=== PATIENT | female | born 1950 | race Caucasian/White ===

== ENCOUNTER 2017-05-13 10:39 | Outpatient (CLI) | payer MEDICARE | END 2017-05-13 10:40 | disposition home or self-care (01) | LOC: BICMAMMO 10:39 | PROVIDERS: ATTEND Family Medicine | DX: Z12.31 Encounter for screening mammogram for malignant neoplasm of breast (principal); R92.1 Mammographic calcification found on diagnostic imaging of breast | CPT/HCPCS: 77063; 77067 ==

== ENCOUNTER 2017-05-15 11:38 | Day surgery (SDC) | payer MEDICARE ==
--- NOTE | 2017-05-15 14:05 | OP ---
DATE OF PROCEDURE: 05/15/2017 TITLE OF THE PROCEDURE: Colonoscopy with snare polypectomy. PREOPERATIVE DIAGNOSES: 1. History of colon polyps. 2. Family history of colon cancer in her grandmother at age 90. 3. History of colon polyps in her father. POSTOPERATIVE DIAGNOSES: 1. Exam to cecum; fair bowel preparation. 2. Diffusely tortuous colon (moderate to severe degree). 3. Mild sigmoid diverticulosis. 4. Diminutive polyp in the proximal ascending colon (3 mm), removed by cold snare technique. 5. Diminutive polyp in the sigmoid colon (3-4 mm), removed by cold snare technique. 6. Medium nonbleeding internal hemorrhoids. 7. Small external hemorrhoids. 8. Otherwise normal colonoscopy. PROCEDURE IN DETAIL: Written informed consent was obtained. The patient was brought to the endoscop y suite. Total intravenous anesthesia was provided by Srini Pedroza CRNA. The patient was placed in th e left lateral decubitus position. A digital rectal exam was performed, which revealed small externa l hemorrhoids. A Pentax video colonoscope was inserted through the anal canal and advanced under dir ect visualization to the cecum. Position in the cecum was verified by transillumination and identifi cation of the appendiceal orifice and the ileocecal valve. The quality of the bowel preparation was adequate. Liquid in fecal matter pooled in multiple areas of the colon. Using copious irrigation an d suctioning, most of this fecal debris was removed. In the proximal ascending colon, a 3 mm sessile polyp was identified and removed by cold snare technique. Another similar polyp about 3-4 mm in katlyn meter was removed from the sigmoid colon using the same cold snare technique. Several diverticular o rifices were noted in the sigmoid colon, small and medium in size. The colon was diffusely tortuous of a moderate to severe degree. In the rectum, a retroflexed view demonstrated medium size nonbleedi ng internal hemorrhoids. The colon was decompressed as the colonoscope was removed from the patient. She was transferred to the day stay surgery area for post-procedure monitoring. There were no imme diate complications. RECOMMENDATIONS: 1. Await pathology results. 2. Ask the patient to call me in 1 week for pathology results. 3. Resume previous diet and medications. 4. Repeat colonoscopy in five years. 5. Follow up with Gastroenterology as needed.
== END 2017-05-15 15:00 | disposition home or self-care (01) ==
LOC: SDC 11:38
PROVIDERS: ATTEND Internal Medicine Gastroenterology
PROC: 0DBK8ZX Excision of Ascending Colon, Via Natural or Artificial Opening Endoscopic, Diagnostic (ICD-10-PCS; principal; 2017-05-15)
PROC: 0DBN8ZX Excision of Sigmoid Colon, Via Natural or Artificial Opening Endoscopic, Diagnostic (ICD-10-PCS; 2017-05-15)
DX: Z12.11 Encounter for screening for malignant neoplasm of colon (principal); K63.5 Polyp of colon; K64.8 Other hemorrhoids; K64.4 Residual hemorrhoidal skin tags; K57.30 Diverticulosis of large intestine without perforation or abscess without bleeding; F31.9 Bipolar disorder, unspecified; F90.0 Attention-deficit hyperactivity disorder, predominantly inattentive type; G89.29 Other chronic pain; M81.0 Age-related osteoporosis without current pathological fracture; J45.909 Unspecified asthma, uncomplicated; M41.9 Scoliosis, unspecified; J44.9 Chronic obstructive pulmonary disease, unspecified; F17.210 Nicotine dependence, cigarettes, uncomplicated; F41.9 Anxiety disorder, unspecified; F12.11 Cannabis abuse, in remission; Z99.3 Dependence on wheelchair; Z79.2 Long term (current) use of antibiotics; Z79.1 Long term (current) use of non-steroidal anti-inflammatories (NSAID); Z79.891 Long term (current) use of opiate analgesic; Z79.899 Other long term (current) drug therapy; Z88.5 Allergy status to narcotic agent; Z98.1 Arthrodesis status; Z98.84 Bariatric surgery status; Z96.652 Presence of left artificial knee joint; Z96.611 Presence of right artificial shoulder joint; Z96.89 Presence of other specified functional implants; Z90.89 Acquired absence of other organs; Z90.710 Acquired absence of both cervix and uterus; Z98.891 History of uterine scar from previous surgery; Z98.890 Other specified postprocedural states; Z87.19 Personal history of other diseases of the digestive system; Z83.79 Family history of other diseases of the digestive system
CPT/HCPCS: 88300; 88305

== ENCOUNTER 2017-07-19 21:55 | Emergency (ER) | payer MEDICARE | END 2017-07-19 23:09 | disposition left against medical advice (07) | LOC: ERS 21:55 | DX: Z53.21 Procedure and treatment not carried out due to patient leaving prior to being seen by health care provider (principal) | CPT/HCPCS: 94640; J7620 ==

== ENCOUNTER 2017-07-20 15:10 | Outpatient (CLI) | payer MEDICARE ==
--- NOTE | 2017-07-20 16:04 | RAD ---
TWO VIEW CHEST: INDICATION: Bronchitis. COMPARISON: Comparison is made to a portable chest of 12/03/16 and chest films dating back to 10/30/14. Calcified granuloma in the right lung base is again noted. There are numerous small calcified lymph nodes in the right infrahilar region which are stable. There is streaky density in the right lung ba se which could represent streaky atelectasis or infiltrate. Similar density has been seen in the rig ht lung base previously which may indicate chronic parenchymal change. The left lung appears clear. Blunting of the left CP angle is a stable finding. No evidence of vasc ular congestion. Heart size within normal range. There is scoliotic curvature of the thoracic spine to the right. IMPRESSION: 1. Streaky atelectasis and/or infiltrative changes in the right lung base. Similar findings were no michel on prior exam, and this may be chronic; however, an acute element of infiltrate cannot be exclude d. 2. Calcified granuloma in the right lower lung again noted. POS: [facility]
== END 2017-07-20 15:11 | disposition home or self-care (01) ==
LOC: SCSRAD 15:10
PROVIDERS: ATTEND Family Medicine
DX: J40 Bronchitis, not specified as acute or chronic (principal); J98.11 Atelectasis; R91.8 Other nonspecific abnormal finding of lung field
CPT/HCPCS: 71046

== ENCOUNTER 2017-11-28 11:15 | Emergency (ER) | payer MEDICARE ==
[2017-11-28 11:56] LABS: Hemoglobin 13.8 g/dL (12.0-16.0); Mean Corpuscular Hemoglobin 31.3 pg (27.0-31.0); Mean Corpuscular Volume 94.8 fL (78.0-98.0); Mean Platelet Volume 7.2 fL (7.4-10.4); Platelet Count 245 thou/uL (130-400); White Blood Cell (WBC) Count 15.3 thou/uL (4.8-10.8)
[2017-11-28 12:05] LABS: ALT (SGPT) Less than 7 U/L (8-55); AST (SGOT) 15 U/L (5-34); Albumin 4.5 g/dL (3.4-4.8); Alkaline Phosphatase 91 U/L (40-150); BUN (Urea Nitrogen) 37 mg/dL (9.8-20.1); Bilirubin, Total 0.6 mg/dL (0.2-1.2); CK (CPK) 39 U/L (29-168); Calc. Creatinine Clearance 0 mL/min (70-130); Estimated GFR-MDRD 46; Glucose 106 mg/dL (80-115); Lipase 20 U/L (8-78); Protein, Total 7.5 g/dL (6.0-8.3)
[2017-11-28 12:08] LABS: CKMB 1.3 ng/mL (0-6.6); Troponin I Less than 0.010 ng/mL (< 0.028)
[2017-11-28 12:14] LABS: Anion Gap 17 mmol/L (10-20); Carbon Dioxide 35 mmol/L (23-31); Chloride 93 mmol/L (98-107); Potassium 4.1 mmol/L (3.5-5.1); Sodium 141 mmol/L (136-145)
--- NOTE | 2017-11-28 12:30 | RAD ---
PORTABLE CHEST 1 VIEW: DATE: 11/28/17. TIME: 11:02 a.m. HISTORY: Chest pain. FINDINGS: Comparison is made with the exam of 12/03/16. The heart size is borderline. The aorta is tortuous. There is evidence of old granulomatous disease . No lobar consolidation, pneumothoraces, juan pulmonary edema, or large effusions are seen. There is continued blunting of the left costophrenic angle which may be due to a small effusion or scarrin g. Postop changes in the lumbar spine and the right shoulder are again noted. POS: [facility]
[2017-11-28 12:33] LABS: Lymphocytes 10 % (21-51); MDiff Complete? YES; Monocytes 6 % (0-10); Neutrophil 82 % (42-75); PLT Morphology Comment Appears Adequate; RBC Morphology Normal; Reactive Lymphocytes 2 % (0-10)
--- NOTE | 2017-11-28 12:59 | CT ---
CT PULMONARY ANGIOGRAM WITH IV CONTRAST AND 3D POSTPROCESSING: HISTORY: Chest pain. FINDINGS: The pulmonary arterial vasculature is well opacified without filling defects to suggest pulmonary emb olism. There is an intimal flap in the ascending thoracic aorta consistent with aortic dissection. There is periaortic soft tissue density along the thoracic aorta (including ascending, descending, an d arch). A small pericardial effusion is seen. No pleural effusions are identified. There are calc ified lymph nodes in the right hilum. There is scarring in the lung bases. No pneumothoraces or lobar consolidation are identified. There are degenerative changes in the spine. Interspinal leads are present. There is scoliosis of the sp ine. There are postop changes in the lumbar spine and the right shoulder. The dissection does not e xtend into the great vessels. The upper abdominal tomograms demonstrate changes of cholecystectomy and calcified granulomas in the spleen. IMPRESSION: DeBakey type II/Dangelo type A aortic dissection involving the ascending aorta. Discussed over the telephone with ER physician, Dr. Miguelito Mccormick, at 12:46 p.m. CODE CR POS: [facility]
[2017-11-28] MEDS ORDERED: ISOVUE-370 76%-LOCM 1 ML ONE (14:55)
== END 2017-11-28 14:45 | disposition short-term general hospital (02) ==
LOC: ERS 11:15
DX: I71.2 Thoracic aortic aneurysm, without rupture (principal); J45.909 Unspecified asthma, uncomplicated; F98.8 Other specified behavioral and emotional disorders with onset usually occurring in childhood and adolescence; M81.0 Age-related osteoporosis without current pathological fracture; F17.210 Nicotine dependence, cigarettes, uncomplicated; Z71.6 Tobacco abuse counseling; Z79.899 Other long term (current) drug therapy
CPT/HCPCS: 71045; 71275; 80053; 82550; 82553; 83690; 83880; 84484; 85025; 93005; 94640; 94760; 99406; J7620

== ENCOUNTER 2018-06-29 13:59 | Inpatient (IN) | payer MEDICARE ==
[2018-06-29 14:45] LABS: #Eosinphils 0.1 thou/uL (0.0-0.7); #Lymphocytes 0.3 thou/uL (1.20-3.40); #Monocytes 0.2 thou/uL (0.11-0.59); #Neutrophils 6.2 thou/uL (1.40-6.50); %Eosinophils 1.6 % (0.0-10.0); %Neutrophils 90.3 % (42.0-75.0); Hemoglobin 12.9 g/dL (12.0-16.0); Mean Corpuscular HGB CONC 30.6 g/dL (32.0-36.0); Mean Corpuscular Hemoglobin 26.3 pg (27.0-31.0); Mean Corpuscular Volume 86.1 fL (78.0-98.0); Mean Platelet Volume 7.4 fL (7.4-10.4); Platelet Count 208 thou/uL (130-400); RBC Distribution Width 13.6 % (11.5-14.5); Red Blood Cell (RBC) Count 4.92 mill/uL (4.20-5.40); White Blood Cell (WBC) Count 6.9 thou/uL (4.8-10.8)
[2018-06-29] MEDS ORDERED: cefTRIAXone\\ROCEPHIN 2 GM VIAL ONE (15:06)
[2018-06-29 15:07] LABS: BUN (Urea Nitrogen) 17 mg/dL (9.8-20.1); Calc. Creatinine Clearance 0 mL/min (70-130); Calcium 9.8 mg/dL (7.8-10.44); Estimated GFR-MDRD 70; Glucose 122 mg/dL (80-115)
[2018-06-29 15:08] LABS: ALT (SGPT) Less than 7 U/L (8-55); AST (SGOT) 17 U/L (5-34); Albumin 4.3 g/dL (3.4-4.8); Alkaline Phosphatase 105 U/L (40-150); Bilirubin, Total 0.3 mg/dL (0.2-1.2); Chloride 90 mmol/L (98-107); Protein, Total 7.3 g/dL (6.0-8.3); Sodium 136 mmol/L (136-145)
[2018-06-29 15:29] LABS: Anion Gap 11 mmol/L (10-20); Carbon Dioxide 38 mmol/L (23-31)
--- NOTE | 2018-06-29 15:34 | RAD ---
PA AND LATERAL VIEWS CHEST: DATE: 06/29/18 HISTORY: Cough. FINDINGS: Comparison made with exam of 11/28/17. Heart size is normal. Aorta is tortuous. A thoracic aortic stent is present. There is evidence of old granulomatous disease. Mild infiltrate is seen in the right lung base, which is new since the last exam. No pneumothoraces or large effusions are noted. There are postop changes in the right shoulder and lumbar spine. Intraspinal leads are present in the thoracic spine. IMPRESSION: Probable right basilar pneumonia. POS: OFF
[2018-06-29 15:38] LABS: Potassium 2.7 mmol/L (3.5-5.1)
[2018-06-29] MEDS ORDERED: Potassium Chloride 20 MEQ TAB ONE ×2 (16:30→20:27)
[2018-06-29] MEDS ORDERED: Potassium Chloride 20 MEQ in Premix Bag 1 BAG IVPB ONE (16:45)
[2018-06-29] MEDS ORDERED: Ondansetron PF 4 MG/2 ML Vial IVP PRN (18:53)
[2018-06-29] MEDS ORDERED: Acetaminophen 325 MG TAB PO PRN (18:53)
[2018-06-29] MEDS ORDERED: Famotidine 20 MG TAB ONE (20:27)
[2018-06-29] MEDS ORDERED: diphenhydrAMINE 25 MG CAP ONE (20:27)
[2018-06-29] MEDS ORDERED: Azithromycin 500 MG VIAL ONE (20:27)
[2018-06-29] MEDS: METHadone HCl 10 MG TAB PO SCH (21:05)
[2018-06-29] MEDS: Famotidine 20 MG TAB PO SCH (21:07)
[2018-06-29] MEDS: diphenhydrAMINE 25 MG CAP PO SCH (21:07)
[2018-06-29] MEDS: Carbidopa/Levodopa 25-100 mg Tablet PO SCH (21:07)
[2018-06-29] MEDS: Gabapentin 300 MG CAP PO SCH (21:07)
[2018-06-29] MEDS: Methocarbamol 500 MG TAB PO SCH (21:07)
[2018-06-29] MEDS: Potassium Chloride 10 MEQ TAB PO SCH (21:08)
[2018-06-29] MEDS: Azithromycin 500 MG in Sodium Chloride 0.9% 250 ML 250 ML IVPB SCH (23:29)
--- NOTE | 2018-06-30 01:57 | HP ---
HISTORY OF PRESENT ILLNESS: This is a 68-year-old white female with severe scoliosis, who presents with fever and cough. She has a long history of bipolar depression and chronic pain due to back pain. She does sleep in a recliner at night. She is followed by Dr. Chiang for chronic pain. She was doing well until approximately 5 days ago she developed a cough and congestion. It gradually became worse. She then started her 's Levaquin 500 mg for 2 days, but ran out. Over the weekend, she was out of the antibiotics, and then on Thursday, she saw Dr. Wyatt and he gave her a Kenalog injection as well as Levaquin 500 daily and Cheratussin cough medicine. However, the patient continued to have respiratory difficulty and presented to the ER. Chest x-ray did reveal early right basilar pneumonia developing. At this time, the patient is doing well in minimal distress and complains of being hungry. PAST MEDICAL HISTORY: Asthma, bronchitis, long tobacco history, depression, bipolar disorder, osteoarthritis, chronic pain disorder, severe scoliosis with dystonia, followed by Dr. Chiang and Dr. Hunter at [facility]. PAST SURGICAL HISTORY: Includes , tonsillectomy, bilateral carpal tunnel syndrome, right bunionectomy, hysterectomy, gastric bypass, history of collapsed lung, gallbladder surgery, spinal fusion, right shoulder surgery several times, spinal cord stimulator implant by Dr. Chiang in 2013, jaw surgery, and recently a thoracic aortic aneurysm repaired with a stent placement in [place]. FAMILY HISTORY: Father with arthritis, skin cancer, and alcohol abuse. Mother with heart disease, hypertension, diabetes, heart disease. Siblings with heart disease. SOCIAL HISTORY: She is a former smoker. She quit in 2007, 40 plus tobacco history. She is , lives with her spouse. They have no children. MEDICATIONS: 1. Levodopa 25/100 t.i.d. 2. Vitamin daily. 3. Methocarbamol 500 t.i.d. 4. Flonase p.r.n. 5. DuoNeb treatments p.r.n. 6. Duloxetine 60 daily. 7. Abilify 10 daily. 8. HCTZ 25 daily. 9. Tessalon Perles p.r.n. 10. Hydroxyzine p.r.n. 11. Potassium chloride 10 t.i.d. 12. Valium 10 p.r.n. 13. Meloxicam 15 daily. 14. Gabapentin 600 t.i.d. p.r.n. 15. Prednisone 10 daily. 16. Levothyroxine 88 daily. 17. Methadone 10 mg 7 a.m., 5 mg 2 p.m., 5 mg 8 p.m. ALLERGIES: 1. MORPHINE. 2. DILAUDID. 3. AUGMENTIN. REVIEW OF SYSTEMS: As above. PHYSICAL EXAMINATION: VITAL SIGNS: Temperature 98.6, blood pressure 134/92, respirations 15. GENERAL: The patient is in minimal distress at this time. HEENT: Clear. She does have severe scoliosis of her neck and back. HEART: Regular rate and rhythm. LUNGS: With bibasilar rales. ABDOMEN: Soft and nontender. EXTREMITIES: With no edema. LABORATORY DATA: White count 6.9, H and H of 12 and 42, and platelet of 208. Sodium 136, potassium 2.7, chloride 90, CO2 of 38, glucose 122. Liver functions normal. Chest x-ray with right basilar pneumonia. ASSESSMENT: 1. Bilateral pneumonia with chest x-ray showing infiltrate in the right basilar area. 2. Chronic obstructive pulmonary disease with a long tobacco history, recently quit in November of 2017. 3. Long tobacco history. 4. Chronic back pain with severe scoliosis, followed by Dr. Chiang with a spinal cord stimulator in place and on multiple medications. 5. Bipolar disorder/depression. 6. Hypokalemia. PLAN: 1. Admit. 2. IV Rocephin and Zithromax. 3. DuoNeb q.6. 4. IV potassium bolus. 5. Recheck labs in a.m. 6. Resume home medications. Job ID: [id number]
[2018-06-30 02:25] VITALS: BMI 23.5
[2018-06-30 05:26] LABS: #Eosinphils 0.1 thou/uL (0.0-0.7); #Lymphocytes 0.4 thou/uL (1.20-3.40); #Monocytes 0.4 thou/uL (0.11-0.59); #Neutrophils 3.3 thou/uL (1.40-6.50); %Basophils 0.6 % (0.0-1.0); %Eosinophils 2.4 % (0.0-10.0); %Lymphocytes 9.1 % (21.0-51.0); %Monocytes 9.5 % (0.0-10.0); %Neutrophils 78.4 % (42.0-75.0); Hemoglobin 11.9 g/dL (12.0-16.0); Mean Corpuscular HGB CONC 29.9 g/dL (32.0-36.0); Mean Corpuscular Hemoglobin 26.6 pg (27.0-31.0); Mean Corpuscular Volume 88.9 fL (78.0-98.0); Mean Platelet Volume 7.4 fL (7.4-10.4); Platelet Count 186 thou/uL (130-400); RBC Distribution Width 13.8 % (11.5-14.5); Red Blood Cell (RBC) Count 4.49 mill/uL (4.20-5.40); White Blood Cell (WBC) Count 4.2 thou/uL (4.8-10.8)
[2018-06-30 05:42] LABS: Anion Gap 11 mmol/L (10-20); BUN (Urea Nitrogen) 19 mg/dL (9.8-20.1); Calc. Creatinine Clearance 62 mL/min (70-130); Calcium 9.2 mg/dL (7.8-10.44); Carbon Dioxide 31 mmol/L (23-31); Chloride 100 mmol/L (98-107); Estimated GFR-MDRD 69; Glucose 87 mg/dL (80-115); Potassium 3.2 mmol/L (3.5-5.1); Sodium 139 mmol/L (136-145)
[2018-06-30] MEDS: Levothyroxine Sodium 88 MCG TAB PO SCH (06:20)
[2018-06-30] MEDS: METHadone HCl 10 MG TAB PO SCH ×3 (06:21→21:22)
[2018-06-30] MEDS ORDERED: Prevnar 13-Val Conj/PF 0.5 ML SYRINGE IM ONE (09:00)
[2018-06-30] MEDS ORDERED: (Lisdexamfetamine Dimesylate [Vyvanse] 50 MG) PO SCH (09:00)
[2018-06-30] MEDS: Lactinex Tablet PO SCH (09:34)
[2018-06-30] MEDS: DULoxetine 60 MG CAP PO SCH (09:34)
[2018-06-30] MEDS: diphenhydrAMINE 25 MG CAP PO SCH ×2 (09:34→21:23)
[2018-06-30] MEDS: Aripiprazole 10 MG TAB PO SCH (09:34)
[2018-06-30] MEDS: Hydrochlorothiazide 25 MG TAB PO SCH ×2 (09:34→09:40)
[2018-06-30] MEDS: Potassium Chloride 10 MEQ TAB PO SCH ×3 (09:35→21:22)
[2018-06-30] MEDS: Furosemide 40 MG TAB PO SCH (09:35)
[2018-06-30] MEDS: Meloxicam 15 MG TAB PO SCH (09:36)
[2018-06-30] MEDS: Methocarbamol 500 MG TAB PO SCH ×3 (09:37→21:22)
[2018-06-30] MEDS: Famotidine 20 MG TAB PO SCH ×2 (09:37→21:23)
[2018-06-30] MEDS: Enoxaparin Sodium 40 MG/0.4 ML SYRINGE SC SCH (09:37)
[2018-06-30] MEDS: Gabapentin 300 MG CAP PO SCH ×2 (09:37→21:22)
[2018-06-30] MEDS: Carbidopa/Levodopa 25-100 mg Tablet PO SCH ×3 (09:37→21:24)
[2018-06-30] MEDS: cefTRIAXone\\ROCEPHIN 1 GM in Sodium Chloride 0.9% 100 ML IVPB SCH (15:42)
[2018-06-30] MEDS: Azithromycin 500 MG in Sodium Chloride 0.9% 250 ML 250 ML IVPB SCH (21:24)
[2018-07-01] MEDS: Levothyroxine Sodium 88 MCG TAB PO SCH (05:51)
[2018-07-01] MEDS: METHadone HCl 10 MG TAB PO SCH ×3 (06:12→21:22)
--- NOTE | 2018-07-01 08:09 | PRG ---
DATE OF SERVICE: 07/01/2018 SUBJECTIVE: Ms. Waters is doing better. She has no medical complaints. She states her cough is little bit better. OBJECTIVE: VITAL SIGNS: Temperature 98.7, O2 sats 97%. LUNGS: Revealed bilateral breath sounds. Few scattered rales. No wheezes are noted. HEART: Reveals regular rate and rhythm. No murmurs, gallops, or rubs. IMPRESSION: Pneumonia. PLAN: 1. Continue current antibiotic therapy. 2. Previous history of hypokalemia. We will recheck basic metabolic panel in a.m. Job ID: [id number]
[2018-07-01] MEDS: Enoxaparin Sodium 40 MG/0.4 ML SYRINGE SC SCH (09:35)
[2018-07-01] MEDS: Lactinex Tablet PO SCH (09:36)
[2018-07-01] MEDS: DULoxetine 60 MG CAP PO SCH (09:36)
[2018-07-01] MEDS: Gabapentin 300 MG CAP PO SCH ×2 (09:36→21:22)
[2018-07-01] MEDS: Furosemide 40 MG TAB PO SCH (09:36)
[2018-07-01] MEDS: diphenhydrAMINE 25 MG CAP PO SCH ×2 (09:36→21:22)
[2018-07-01] MEDS: Potassium Chloride 10 MEQ TAB PO SCH ×3 (09:36→21:23)
[2018-07-01] MEDS: Famotidine 20 MG TAB PO SCH ×2 (09:36→21:22)
[2018-07-01] MEDS: Carbidopa/Levodopa 25-100 mg Tablet PO SCH ×3 (09:36→21:22)
[2018-07-01] MEDS: Meloxicam 15 MG TAB PO SCH (09:36)
[2018-07-01] MEDS: Aripiprazole 10 MG TAB PO SCH (09:36)
[2018-07-01] MEDS: Methocarbamol 500 MG TAB PO SCH ×3 (09:36→21:23)
[2018-07-01] MEDS: Hydrochlorothiazide 25 MG TAB PO SCH (09:37)
[2018-07-01] MEDS: cefTRIAXone\\ROCEPHIN 1 GM in Sodium Chloride 0.9% 100 ML IVPB SCH (15:35)
[2018-07-01] MEDS: Acetaminophen 325 MG TAB PO PRN (16:26)
[2018-07-01] MEDS ORDERED: Clotrimazole/Betamethasone Cream 45 GM TUBE TOP PRN (17:15)
[2018-07-01] MEDS: Azithromycin 500 MG in Sodium Chloride 0.9% 250 ML 250 ML IVPB SCH (21:21)
[2018-07-01] MEDS ORDERED: Zolpidem Tartrate 5 MG TAB PO SCH (23:15)
[2018-07-02 06:14] LABS: Anion Gap 11 mmol/L (10-20); BUN (Urea Nitrogen) 17 mg/dL (9.8-20.1); Calc. Creatinine Clearance 78 mL/min (70-130); Calcium 8.8 mg/dL (7.8-10.44); Carbon Dioxide 32 mmol/L (23-31); Chloride 100 mmol/L (98-107); Estimated GFR-MDRD 90; Glucose 114 mg/dL (80-115); Potassium 3.5 mmol/L (3.5-5.1); Sodium 139 mmol/L (136-145)
[2018-07-02] MEDS: METHadone HCl 10 MG TAB PO SCH ×3 (06:20→20:14)
[2018-07-02] MEDS: Levothyroxine Sodium 88 MCG TAB PO SCH (06:20)
--- NOTE | 2018-07-02 08:05 | PRG ---
DATE OF SERVICE: 07/02/2018 SUBJECTIVE: Ms. Waters is feeling better. No shortness of breath noted. OBJECTIVE: VITAL SIGNS: Temperature 98.1, O2 sats 94% on room air, and blood pressure 134/71. LUNGS: Bilateral breath sounds. HEART: Reveals no murmur. LABORATORY DATA: Her potassium is now 3.5. IMPRESSION: 1. Pneumonia. 2. Hypokalemia, resolved. PLAN: Check chest x-ray today. If her chest x-ray is clear, possibly could be discharged home later today. Job ID: [id number]
[2018-07-02] MEDS: Lactinex Tablet PO SCH (09:44)
[2018-07-02] MEDS: Methocarbamol 500 MG TAB PO SCH ×3 (09:44→20:14)
[2018-07-02] MEDS: Meloxicam 15 MG TAB PO SCH (09:44)
[2018-07-02] MEDS: Furosemide 40 MG TAB PO SCH (09:45)
[2018-07-02] MEDS: Aripiprazole 10 MG TAB PO SCH (09:45)
[2018-07-02] MEDS: Gabapentin 300 MG CAP PO SCH ×2 (09:45→20:14)
[2018-07-02] MEDS: Potassium Chloride 10 MEQ TAB PO SCH ×3 (09:45→20:14)
[2018-07-02] MEDS: diphenhydrAMINE 25 MG CAP PO SCH ×2 (09:45→20:14)
[2018-07-02] MEDS: DULoxetine 60 MG CAP PO SCH (09:45)
[2018-07-02] MEDS: Hydrochlorothiazide 25 MG TAB PO SCH (09:45)
[2018-07-02] MEDS: Carbidopa/Levodopa 25-100 mg Tablet PO SCH ×3 (09:45→20:14)
[2018-07-02] MEDS: Enoxaparin Sodium 40 MG/0.4 ML SYRINGE SC SCH (09:46)
[2018-07-02] MEDS: Famotidine 20 MG TAB PO SCH ×2 (09:47→20:14)
--- NOTE | 2018-07-02 09:51 | RAD ---
RADIOGRAPH CHEST 2 VIEWS: Date: 07/02/2018. Time: 9:23 a.m. HISTORY: A 68-year-old female. Followup pneumonia. COMPARISON: 06/29/2018. FINDINGS: The frontal projections are angled very steeply lordotically, making this a suboptimal evaluation and suboptimal comparison. Mild patchy pulmonary density at the right base appears more plate-like on t he current AP views, suggesting subsegmental atelectasis. No dense consolidation is visualized on th e lateral view. Lungs are hypoinflated. Again noted is the metallic stent at the ascending thoracic aorta. No pulmonary edema. No moderate-sized or large pleural effusion. IMPRESSION: 1. Nonspecific pulmonary density at posterior base of right lower lobe, for which subsegmental atele ctasis is slightly favored. 2. However, continued followup is recommended. 3. Stent within fusiform ascending thoracic aortic aneurysm. KIRSTEN [] POS: [facility]
--- NOTE | 2018-07-02 12:14 | EKG ---
Test Reason : Blood Pressure : / mmHG Vent. Rate : 102 BPM Atrial Rate : 102 BPM P-R Int : 128 ms QRS Dur : 090 ms QT Int : 398 ms P-R-T Axes : 050 -28 054 degrees QTc Int : 518 ms Sinus tachycardia Nonspecific T wave abnormality Abnormal ECG Confirmed by NIGEL BENITES DO ([id number]), news videotape editor TIANA GODINEZ ([id number]) on 07/02/2018 12:14:14 PM Referred By: Confirmed By:NIGEL BENITES DO
[2018-07-02] MEDS: cefTRIAXone\\ROCEPHIN 1 GM in Sodium Chloride 0.9% 100 ML IVPB SCH (14:17)
[2018-07-02] MEDS: Acetaminophen 325 MG TAB PO PRN ×2 (14:35→22:35)
[2018-07-02] MEDS: Azithromycin 500 MG in Sodium Chloride 0.9% 250 ML 250 ML IVPB SCH (20:13)
[2018-07-03] MEDS: Levothyroxine Sodium 88 MCG TAB PO SCH (06:33)
[2018-07-03] MEDS: METHadone HCl 10 MG TAB PO SCH (06:33)
[2018-07-03] MEDS: Enoxaparin Sodium 40 MG/0.4 ML SYRINGE SC SCH (09:48)
[2018-07-03] MEDS: Gabapentin 300 MG CAP PO SCH (09:49)
[2018-07-03] MEDS: Famotidine 20 MG TAB PO SCH (09:49)
[2018-07-03] MEDS: Meloxicam 15 MG TAB PO SCH (09:49)
[2018-07-03] MEDS: DULoxetine 60 MG CAP PO SCH (09:49)
[2018-07-03] MEDS: Carbidopa/Levodopa 25-100 mg Tablet PO SCH (09:49)
[2018-07-03] MEDS: Hydrochlorothiazide 25 MG TAB PO SCH (09:49)
[2018-07-03] MEDS: Methocarbamol 500 MG TAB PO SCH (09:49)
[2018-07-03] MEDS: Furosemide 40 MG TAB PO SCH (09:49)
[2018-07-03] MEDS: Aripiprazole 10 MG TAB PO SCH (09:50)
[2018-07-03] MEDS: Potassium Chloride 10 MEQ TAB PO SCH (09:50)
[2018-07-03] MEDS: diphenhydrAMINE 25 MG CAP PO SCH (09:50)
[2018-07-03 11:42] VITALS: BP 110/72; TEMP 97.9
--- NOTE | 2018-07-03 12:31 | DIS ---
DATE OF ADMISSION: 06/29/2018 DATE OF DISCHARGE: 07/03/2018 ADMITTING DIAGNOSES: Bilateral pneumonia with infiltrate in the right malar area, chronic obstructive pulmonary disease and asthma chronic history, chronic back pain with severe scoliosis including cervical followed by Dr. Chiang, bipolar disorder, and also recent hypokalemia. DISCHARGE DIAGNOSES: Bilateral pneumonia with infiltrate in the right malar area, chronic obstructive pulmonary disease and asthma chronic history, chronic back pain with severe scoliosis including cervical followed by Dr. Chiang, bipolar disorder, also recent hypokalemia, and atelectasis, no persistent pneumonia signs. HOSPITAL COURSE: The patient is a 68-year-old female patient of Dr. Escobar Wyatt, came in with weakness and difficulty breathing. Chest x-ray showed bibasilar consolidations, but inconsistent with pneumonia, possibly atelectasis. She was started on antibiotics and continued on nebulizer treatments. On day of discharge, she is breathing much better, happy, smiling, and ready to go home. She will continue on her medicines of levodopa 25/100 t.i.d., Abilify 10 mg daily, Duloxetine 60 mg daily, methocarbamol 500 mg t.i.d., DuoNebs q.8 p.r.n., and Flonase p.r.n. She also is on hydrochlorothiazide 25 mg daily. She is on potassium 10 mEq t.i.d., meloxicam 15 mg daily, prednisone 10 mg daily, levothyroxine 88 mcg daily, and she is on methadone 10 mg in the morning and 5 mg in the afternoon and 5 mg in the evening. She also has several p.r.n. medicines of Tessalon, hydroxyzine, Valium, and gabapentin 600 mg t.i.d. as needed. Her allergies to morphine, Dilaudid, and Augmentin. The patient was initially seen with weakness and respiratory difficulties with congestion and cough and was treated as asthma and early possible pneumonia and on the day of discharge, doing well. No evidence of pneumonia per the recent chest x-ray. She will plan on going home on all routine medications and continue the nebulizers on a while actually. Also give her an inspiratory spirometer use at home. The patient was informed of all this and had no questions or concerns. She will need to follow up with Dr. Escobar Wyatt later this week in the clinic. Job ID: [id number]
[2018-07-03] MEDS: Lactinex Tablet PO SCH (12:45)
== END 2018-07-03 12:55 | disposition home or self-care (01) | DRG 194 ==
LOC: ERS 13:59 → ERHOLD 16:29 → 2SE 06-30 01:48
PROVIDERS: ADMIT Family Medicine; ATTEND Family Medicine
DX: J18.9 Pneumonia, unspecified organism (principal); J44.0 Chronic obstructive pulmonary disease with (acute) lower respiratory infection; J98.11 Atelectasis; G89.29 Other chronic pain; M54.9 Dorsalgia, unspecified; M41.9 Scoliosis, unspecified; F31.9 Bipolar disorder, unspecified; E87.6 Hypokalemia; Z79.1 Long term (current) use of non-steroidal anti-inflammatories (NSAID); Z79.899 Other long term (current) drug therapy; M19.90 Unspecified osteoarthritis, unspecified site; Z90.710 Acquired absence of both cervix and uterus; Z98.84 Bariatric surgery status; Z98.1 Arthrodesis status; Z87.891 Personal history of nicotine dependence; Z79.52 Long term (current) use of systemic steroids; Z88.5 Allergy status to narcotic agent; Z88.0 Allergy status to penicillin
CPT/HCPCS: 36415; 71046; 80048; 80053; 83605; 83735; 84484; 85025; 87040; 90471; 90662; 93005; 94640; 96361; 96365; G0008; J0456; J0696; J1650; J3480; J7050; J7620; Q0163

== ENCOUNTER 2018-09-08 13:45 | Outpatient (CLI) | payer MEDICARE ==
--- NOTE | 2018-09-08 16:04 | CT ---
EXAM: CT cervical spine PROVIDED CLINICAL HISTORY: Cervical foraminal stenosis, cervical radiculopathy. Patient states years of severe head and neck kim n. Patient now having left arm pain and numbness TECHNIQUE: Contiguous axial CT images are obtained through the cervical spine from the skull base to the T1 leve l. Sagittal and coronal reformatted images are provided. COMPARISON: 06/11/2012 FINDINGS: This examination is obtained with the patient in a severe kyphotic positioning of the cervical spine which limits evaluation. Degree of exaggerated kyphosis is significantly increased compared to prior study in 2013.The patient's head is also tilted to the right and rotated to the left. These fin dings limit evaluation, but this exam is diagnostic. There is mild anterolisthesis of C2 on C3, C3 on C4, and C4 on C5 similar which is exaggerated due to extreme flexion due to kyphotic positioning. The degree of anterolisthesis is stable at the C3-4 and C4-5 levels represents an interval change at the C2-3 level compared to study in 2013. No fractur e is visualized. Degenerative changes are again seen in the cervical spine with narrowing of the intervertebral disc s paces at all levels greatest at the C5-6 and C6-7 levels. No prevertebral soft tissue swelling apparent. Lung apices not imaged. Visualized thyroid gland demonstrates a grossly normal nonenhanced CT appearance. IMPRESSION: 1. There is rotation seen at the C1-2 level likely due to patient's head positioning and is not thoug ht to be related to rotary subluxation. 2. Anterolisthesis of C2 on C3, C3 on C4, and C4 on C5. 3. Extreme exaggerated kyphosis of the cervical spine centered at the C4-5 level. 4. Multilevel degenerative changes.
== END 2018-09-08 13:46 | disposition home or self-care (01) ==
LOC: SCSCT 13:45 → BICCT 13:46
PROVIDERS: ATTEND Nurse Practitioner Family
DX: M47.22 Other spondylosis with radiculopathy, cervical region (principal); M54.12 Radiculopathy, cervical region; M48.02 Spinal stenosis, cervical region; M43.12 Spondylolisthesis, cervical region; M40.202 Unspecified kyphosis, cervical region
CPT/HCPCS: 72125

== ENCOUNTER 2018-09-17 20:32 | Emergency (ER) | payer MEDICARE ==
[2018-09-17] MEDS ORDERED: diphenhydrAMINE 50 MG/ML VIAL ONE (21:27)
[2018-09-17] MEDS ORDERED: Metoclopramide HCl 10 MG/2 ML VIAL ONE (21:27)
[2018-09-17] MEDS ORDERED: Methocarbamol 1 GM/10 ML VIAL SLOW IVP SCH (22:00)
[2018-09-17] MEDS ORDERED: Bupivacaine 0.5% 10 ML VIAL ONE (23:07)
[2018-09-17] MEDS ORDERED: Magnesium 2 GM/50 ML BAG (IN WATER) ONE (23:10)
[2018-09-17] MEDS ORDERED: methylPREDNISolone Sod Succ/PF 125 MG/2 ML VIAL ONE (23:10)
[2018-09-17] MEDS ORDERED: Lorazepam 2 MG/ML VIAL ONE (23:43)
== END 2018-09-18 00:04 | disposition home or self-care (01) ==
LOC: ERS 20:32
DX: R51 Headache (principal); J44.9 Chronic obstructive pulmonary disease, unspecified; F41.9 Anxiety disorder, unspecified; F31.9 Bipolar disorder, unspecified; Z87.891 Personal history of nicotine dependence; Z79.899 Other long term (current) drug therapy; Z79.51 Long term (current) use of inhaled steroids
CPT/HCPCS: 20551; 96365; 96367; 96375; J1200; J2060; J2765; J2800; J2930; J3475; J3490

== ENCOUNTER 2018-09-19 17:35 | Emergency (ER) | payer MEDICARE ==
[2018-09-19] MEDS ORDERED: Bupivacaine 0.5% 10 ML VIAL ONE (18:53)
== END 2018-09-19 19:23 | disposition home or self-care (01) ==
LOC: ERS 17:35
DX: G44.229 Chronic tension-type headache, not intractable (principal); J44.9 Chronic obstructive pulmonary disease, unspecified; F41.9 Anxiety disorder, unspecified; F31.9 Bipolar disorder, unspecified; F98.8 Other specified behavioral and emotional disorders with onset usually occurring in childhood and adolescence; Z87.891 Personal history of nicotine dependence; Z79.51 Long term (current) use of inhaled steroids; Z79.899 Other long term (current) drug therapy
CPT/HCPCS: 99283; J3490

== ENCOUNTER 2019-02-08 14:02 | Outpatient (CLI) | payer MEDICARE ==
--- NOTE | 2019-02-08 14:31 | RAD ---
EXAM: 3 views of the left shoulder HISTORY: Shoulder pain COMPARISON: None FINDINGS: There is no evidence of acute fracture or dislocation. Moderate glenohumeral degenerative c hanges are present there is absence of the distal aspect of the left clavicle. There is a high riding humeral head. IMPRESSION: Degenerative changes without evidence of acute osseous abnormality.
== END 2019-02-08 14:03 | disposition home or self-care (01) ==
LOC: RAD 14:02
PROVIDERS: ATTEND Nurse Practitioner Family
DX: M25.512 Pain in left shoulder (principal); M19.012 Primary osteoarthritis, left shoulder

== ENCOUNTER 2019-03-25 11:47 | Outpatient (CLI) | payer MEDICARE ==
--- NOTE | 2019-03-25 12:29 | CT ---
Exam: Head CT without contrast HISTORY: Frequent headaches. Memory loss. COMPARISON: 12/01/2016 FINDINGS: Hemorrhage: No intraparenchymal hemorrhage or extra-axial hematoma. Brain parenchyma: Cortical middleton-white matter differentiation is preserved. No mass effect or midline shift. Basilar cisterns are patent.Age-appropriate atrophy. Chronic small vessel ischemic changes of the white matter Ventricular system: Ventricles and sulci are patent and symmetric. Calvarium: Intact. Sinuses and mastoid air cells: Adequate aeration. IMPRESSION: No acute intracranial process. Age-appropriate atrophy.
== END 2019-03-25 11:48 | disposition home or self-care (01) ==
LOC: CT 11:47
PROVIDERS: ATTEND Family Medicine
DX: R51 Headache (principal); R41.3 Other amnesia
CPT/HCPCS: 70450

== ENCOUNTER 2019-04-14 09:02 | Emergency (ER) | payer MEDICARE ==
[2019-04-14] MEDS ORDERED: Metoclopramide HCl 10 MG/2 ML VIAL ONE (10:06)
[2019-04-14] MEDS ORDERED: Ketorolac Tromethamine 30 MG/ML VIAL ONE (10:06)
[2019-04-14] MEDS ORDERED: diphenhydrAMINE 50 MG/ML VIAL ONE (10:06)
== END 2019-04-14 11:45 | disposition home or self-care (01) ==
LOC: ERS 09:02
DX: G43.909 Migraine, unspecified, not intractable, without status migrainosus (principal); J44.9 Chronic obstructive pulmonary disease, unspecified; F41.9 Anxiety disorder, unspecified; F98.8 Other specified behavioral and emotional disorders with onset usually occurring in childhood and adolescence; Z87.891 Personal history of nicotine dependence; Z79.899 Other long term (current) drug therapy; Z79.51 Long term (current) use of inhaled steroids
CPT/HCPCS: 96365; 96375; J1200; J1885; J2765